=== PATIENT | female | born 1990 | race African-American/Black ===

== ENCOUNTER 2022-02-22 09:04 | Emergency (ER) | payer SELFPAY | END 2022-02-22 11:33 | disposition home or self-care (01) | LOC: CSHERS 09:04 | DX: S51.811D Laceration without foreign body of right forearm, subsequent encounter (principal); S51.812D Laceration without foreign body of left forearm, subsequent encounter; X58.XXXD Exposure to other specified factors, subsequent encounter ==

== ENCOUNTER 2022-08-10 03:18 | Emergency (ER) | payer SELFPAY | END 2022-08-10 05:10 | LOC: CSHERS 03:18 | DX: Z00.00 Encounter for general adult medical examination without abnormal findings (principal) | CPT/HCPCS: 99282 ==

== ENCOUNTER 2022-08-10 05:10 | Emergency (ER) | payer SELFPAY | END 2022-08-10 05:51 | disposition left against medical advice (07) | LOC: CSHERS 05:10 | DX: Z53.21 Procedure and treatment not carried out due to patient leaving prior to being seen by health care provider (principal) ==